=== PATIENT | male | born 1980 | race Caucasian/White ===

== ENCOUNTER 2024-05-28 11:56 | Inpatient (IN) | payer OTHER ==
[2024-05-28 12:40] VITALS: BMI 40.7
[2024-05-28] MEDS ORDERED: DICYCLOMINE HCL 10 MG CAPSULE PO PRN (12:51)
[2024-05-28] MEDS ORDERED: BENZONATATE 200 MG CAPSULE PO PRN (12:51)
[2024-05-28] MEDS ORDERED: ONDANSETRON *ODT* 4 MG TABLET SL PRN (12:51)
[2024-05-28] MEDS ORDERED: MAG HYDROX/AL HYDROX/SIMETH 30 ML UNIT-DOSE CUP PO PRN (12:51)
[2024-05-28] MEDS ORDERED: IBUPROFEN 600 MG TABLET (FP) PO PRN (12:51)
[2024-05-28] MEDS ORDERED: NICOTINE POLACRILEX 2 MG LOZENGE BC PRN (12:51)
[2024-05-28] MEDS ORDERED: MAGNESIUM HYDROX 2400MG/30ML ORAL SUSPENSION 30 ML CUP PO PRN (12:51)
[2024-05-28] MEDS ORDERED: BENZOCAINE/MENTHOL (CHLORASEPTIC ) LOZENGE MM PRN (12:51)
[2024-05-28] MEDS ORDERED: LOPERAMIDE HCL 2 MG CAPSULE PO PRN (12:51)
[2024-05-28] MEDS ORDERED: NALOXONE (NARCAN) HCL 4 MG/0.1 ML SPRAY NS PRN (12:51)
[2024-05-28] MEDS ORDERED: NICOTINE POLACRILEX 2 MG GUM BUC PRN (12:51)
[2024-05-28] MEDS ORDERED: guaiFENesin 600 MG TABLET.ER (FP) PO PRN (12:51)
[2024-05-28] MEDS ORDERED: POLYETHYLENE GLYCOL (HEALTHYLAX) 3350 17 GM PACKET PO PRN (12:51)
[2024-05-28] MEDS ORDERED: IBUPROFEN 400 MG TABLET (FP) PO PRN (12:51)
[2024-05-28] MEDS ORDERED: ACETAMINOPHEN 325 MG TABLET (FP) PO PRN (12:51)
[2024-05-28] MEDS ORDERED: BISMUTH SUBSALICYLATE 262 MG/15 ML BTL PO PRN (12:51)
[2024-05-28] MEDS: hydrOXYzine PAMOATE 25 MG CAPSULE (FP) PO PRN (17:16)
[2024-05-28] MEDS: MELATONIN 5 MG TABLETS PO SCH (22:32)
[2024-05-28] MEDS: THIAMINE 100 MG TABLET PO SCH (22:32)
[2024-05-29 09:48] LABS: CHLORIDE 106 mmol/L (98-107); HEMATOCRIT 40.6 % (35.4-49); HEMOGLOBIN 13.5 GM/dL (11.7-16.9); MCH 31.2 pg (25.7-33.7); MCHC 33.3 g/dl (32.0-35.9); MEAN CELL VOLUME 93.5 fl (80-96); MEAN PLT VOLUME 7.5 fl (7.5-11.1); PLATELET COUNT 223 10^3/uL (134-434); POTASSIUM 3.8 mmol/L (3.5-5.1); RBC 4.34 M/mm3 (4.00-5.60); SODIUM 139 mmol/L (136-145); WHITE BLOOD COUNT 5.1 K/mm3 (4.0-10.0)
[2024-05-29 10:09] LABS: ALBUMIN 2.9 g/dl (3.4-5.0); ANION GAP 7 mmol/L (4-13); BLOOD UREA NITROGEN 9.2 mg/dL (7-18); CALCIUM 8.9 mg/dL (8.5-10.1); CO2 26 mmol/L (21-32)
[2024-05-29 10:11] LABS: GLUCOSE,RANDOM 107 mg/dL (74-106)
[2024-05-29 10:12] LABS: CREATININE 0.6 mg/dL (0.55-1.3); SGOT/AST 28 U/L (15-37); SGPT/ALT 27 U/L (13-61)
[2024-05-29 10:14] LABS: BILIRUBIN,TOTAL 0.7 mg/dL (0.2-1)
[2024-05-29 10:15] LABS: ALK PHOS 61 U/L (45-117)
[2024-05-29] MEDS: NALTREXONE HCL 50 MG TABLET PO ONE (10:42)
[2024-05-29] MEDS: PRENATAL VITAMINS W/ FOLIC ACID TABLET (FP) PO SCH (10:42)
[2024-05-29] MEDS: METHOCARBAMOL 500 MG TABLET PO PRN (10:43)
[2024-05-29] MEDS: amLODIPine BESYLATE 5 MG TABLET (FP) PO SCH (13:45)
[2024-05-30] MEDS: NALTREXONE HCL 50 MG TABLET PO SCH (09:45)
[2024-05-30 14:16] VITALS: RESP 17
[2024-05-30 17:52] VITALS: BP 127/88; PULSE 78; TEMP 98.4
== END 2024-05-30 17:37 | disposition other institution (70) | DRG 774 ==
LOC: YASAS 11:56 → Y6N 14:22
PROVIDERS: ADMIT Allergy & Immunology; ATTEND Allergy & Immunology
PROC: HZ2ZZZZ Detoxification Services for Substance Abuse Treatment (ICD-10-PCS; principal; 2024-05-28)
DX: F10.20 Alcohol dependence, uncomplicated (principal); F14.20 Cocaine dependence, uncomplicated; F17.210 Nicotine dependence, cigarettes, uncomplicated; F43.10 Post-traumatic stress disorder, unspecified; I10 Essential (primary) hypertension; Z62.810 Personal history of physical and sexual abuse in childhood; Z63.8 Other specified problems related to primary support group
CPT/HCPCS: 36415; 80053; 80305; 80307; 85027; 86593; 86780; 87811; 93005; 93010

== ENCOUNTER 2024-05-30 17:52 | Inpatient (IN) | payer OTHER ==
[2024-05-30] MEDS ORDERED: METHOCARBAMOL 500 MG TABLET PO PRN (18:07)
[2024-05-30] MEDS ORDERED: IBUPROFEN 600 MG TABLET (FP) PO PRN (18:07)
[2024-05-30] MEDS ORDERED: LOPERAMIDE HCL 2 MG CAPSULE PO PRN (18:07)
[2024-05-30] MEDS ORDERED: BENZOCAINE/MENTHOL (CHLORASEPTIC ) LOZENGE MM PRN (18:07)
[2024-05-30] MEDS ORDERED: MAG HYDROX/AL HYDROX/SIMETH 30 ML UNIT-DOSE CUP PO PRN (18:07)
[2024-05-30] MEDS ORDERED: NALOXONE (NARCAN) HCL 4 MG/0.1 ML SPRAY NS PRN (18:07)
[2024-05-30] MEDS ORDERED: guaiFENesin 600 MG TABLET.ER (FP) PO PRN (18:07)
[2024-05-30] MEDS ORDERED: IBUPROFEN 400 MG TABLET (FP) PO PRN (18:07)
[2024-05-30] MEDS ORDERED: BENZONATATE 200 MG CAPSULE PO PRN (18:07)
[2024-05-30] MEDS ORDERED: NICOTINE POLACRILEX 2 MG LOZENGE BC PRN (18:07)
[2024-05-30] MEDS ORDERED: NALOXONE HCL 0.4 MG/ML VIAL IVPUSH PRN (18:07)
[2024-05-30] MEDS ORDERED: POLYETHYLENE GLYCOL (HEALTHYLAX) 3350 17 GM PACKET PO PRN (18:07)
[2024-05-30] MEDS ORDERED: NICOTINE POLACRILEX 2 MG GUM BUC PRN (18:07)
[2024-05-30] MEDS ORDERED: hydrOXYzine PAMOATE 25 MG CAPSULE (FP) PO PRN (18:07)
[2024-05-30] MEDS: MELATONIN 5 MG TABLETS PO SCH (21:32)
[2024-05-30] MEDS: THIAMINE 100 MG TABLET PO SCH (21:32)
[2024-05-31] MEDS: amLODIPine BESYLATE 5 MG TABLET (FP) PO SCH (10:20)
[2024-05-31] MEDS: PRENATAL VITAMINS W/ FOLIC ACID TABLET (FP) PO SCH (10:20)
[2024-05-31] MEDS: NALTREXONE HCL 50 MG TABLET PO SCH (10:21)
[2024-06-01] MEDS: MAGNESIUM HYDROX 2400MG/30ML ORAL SUSPENSION 30 ML CUP PO PRN (09:38)
[2024-06-02] MEDS ORDERED: TUBERCULIN PPD 5 TU/0.1ML VIAL ID ONE (10:58)
[2024-06-03] MEDS ORDERED: OXYMETAZOLINE 0.05% NASAL SOLUTION 15 ML BOTTLE NS PRN (13:19)
[2024-06-03] MEDS ORDERED: guaiFENesin 600 MG TABLET.ER (FP) PO PRN (13:19)
[2024-06-03] MEDS ORDERED: BENZONATATE 200 MG CAPSULE PO PRN (13:19)
[2024-06-03] MEDS: BACLOFEN 10 MG TABLET (FP) PO SCH (15:26)
[2024-06-07] MEDS: ACETAMINOPHEN 325 MG TABLET (FP) PO PRN (05:25)
[2024-06-10] MEDS: buPROPion HCL 75 MG TABLET PO SCH (21:37)
[2024-06-14] MEDS: FLU VACCINE (FLULAVAL) PF 45 MCG/0.5 ML SYRINGE 2024-2025 IM ONE (17:16)
[2024-06-17 05:46] VITALS: RESP 17; TEMP 98
[2024-06-17 09:18] VITALS: BP 119/69; PULSE 73
== END 2024-06-17 09:18 | disposition home or self-care (01) | DRG 772 ==
LOC: YASAS 17:52 → Y3W 17:53
PROVIDERS: ADMIT Psychiatry & Neurology Pain Medicine; ATTEND Psychiatry & Neurology Pain Medicine
PROC: HZ42ZZZ Group Counseling for Substance Abuse Treatment, Cognitive-Behavioral (ICD-10-PCS; principal; 2024-05-30)
DX: F10.20 Alcohol dependence, uncomplicated (principal); F17.210 Nicotine dependence, cigarettes, uncomplicated; F43.10 Post-traumatic stress disorder, unspecified; I10 Essential (primary) hypertension; J41.0 Simple chronic bronchitis
CPT/HCPCS: 0241U-QW; 90656; G0008; J0475